=== PATIENT | male | born 1975 | race Caucasian/White ===

== ENCOUNTER 2017-01-16 08:14 | Emergency (ER) | payer SELFPAY ==
[~2017-01-16] VITALS: Ht 180.3 cm; Wt 113.4 kg
[2017-01-16 08:26] VITALS: BP 138/81
[2017-01-16] MEDS ORDERED: BACI28.34 TP (08:45)
[2017-01-16] MEDS ORDERED: LIDOCAINE 2% 20 ML VIAL. IJ ONE (08:45)
--- NOTE | 2017-01-16 08:45 | PHYS DOC ---
Past Medical History Past Medical History: No Pertinent History Past Surgical History: No Surgical History Smoking: Cigarettes, Greater than 1 pack/day Alcohol Use: None Drug Use: None Adult General Chief Complaint Chief Complaint: LACERATION/AVULSION HPI HPI Patient is a pleasant 41-year-old male who works as a broiler chef or cook was cutting vesicles today earlier about 45 minutes prior to arrival and was using a sharp knife while cutting celery slicing into his left finger. There is no numbness and tingling associated with the injury. He's got full range of motion at all the joints within the finger itself and no weakness to full range of motion. Patient denies any foreign body sensation bleeding was stopped directly with direct pressure. Patient also claims that his immunizations including tetanus shot of been updated within the last 5 years. Patient has no other complaints or concerns. Pain is minor at most with pinching his finger to stop the bleeding. Review of Systems Review of Systems Musculoskeletal: Denies back pain or joint pain [] Integument: Denies rash or skin lesions [] Neurologic: Denies headache, focal weakness or sensory changes [] Current Medications Current Medications Current Medications Medications (Trade) Dose Ordered Sig/Manju Start Time Stop Time Status Last Admin Dose Admin Lidocaine HCl 20 ml 1X ONCE 01/16/17 08:45 01/16/17 08:46 DC 01/16/17 08:47 20 ML Allergies Allergies Allergies Coded Allergies Type Severity Reaction Last Updated Verified No Known Drug Allergies 01/16/17 No Physical Exam Physical Exam Vital signs reviewed within normal limits no blood pressure noted. Constitutional: Well developed, well nourished, no acute distress, non-toxic appearance. [] Cardiovascular:Heart rate regular rhythm, no murmur [] Lungs & Thorax: Bilateral breath sounds clear to auscultation [] Skin: Warm, dry, no erythema, no rash. [] Extremities: No tenderness, no cyanosis, no clubbing, ROM intact, no edema. He has a 1.2 cm laceration on the lateral aspect of the left index finger. Patient has normal sensation and strength. Full range of motion. He has no tenderness or involvement of the DIP or PIP joints. He has no foreign body sensation and reading bleeding is well-controlled with direct pressure. He is right-hand dominant. Neurologic: Alert and oriented X 3, normal motor function, normal sensation Current Patient Data Vital Signs Vital Signs Date Time Temp Pulse Resp B/P (MAP) Pulse Ox O2 Delivery O2 Flow Rate FiO2 01/16/17 08:26 98.7 84 16 95 Room Air 98.7 EKG EKG [] Radiology/Procedures Radiology/Procedures [] Course & Med Decision Making Course & Med Decision Making Pertinent Labs and Imaging studies reviewed. (See chart for details) Upon arrival and history and physical patient's laceration will require repair. The floor is visualized and there is no foreign body sensation noted by or by me during full range of motion. Paul cleaned and irrigated this wound repair at with interrupted sutures and discharge this patient home with follow-up with his doctor. See the procedure note upon the end of this case. Impression: Finger laceration. Impression: PCP follow-up for suture removal in 14 days. [] Dragon Disclaimer Dragon Disclaimer This electronic medical record was generated, in whole or in part, using a voice recognition dictation system. Departure Departure Impression: Primary Impression: Laceration of finger of left hand Disposition: 01 HOME, SELF-CARE Condition: IMPROVED Patient Instructions: Laceration Care, Adult Additional Instructions: He is return for any signs of infection, increasing pain or decreased sensation of the finger despite treatment or given any question concerns. Please follow- up with your primary care doctor for suture removal in approximately 14 days. He will not need antibiotics at this time is that this is a clean wound it's been addressed in a very timely manner. Scripts Bacitracin/Polymyxin B Sulfate (POLYSPORIN TOPICAL OINT) 28.3 Gm Oint...g. 1 CAITY TP BID for WOUND CARE, #1 TUBE DIRECTED BY PHYSICIAN Prov: WEST ANDRADE MD 01/16/17 Laceration Repair Lac Repair Indication: [Index finger laceration Procedure: The patient was placed in the appropriate position and anesthesia around the [index finger laceration on the lateral side anesthesia was provided of 3 mL of 2% lidocaine. Area was then using normal saline wash manual debridement and Betadine.. The laceration was closed with 4. 0 Ethilon interrupted sutures. There were 8 individual sutures placed. [ADDITIONAL LACS] The wound area was then dressed with clean bandages finger splint and bacitracin ointment. Total repaired wound length: Total length 1.2 cm. Other Items: No other injuries. There is no foreign body noted no tendon involvement or muscle moment. The patient tolerated the procedure well without issue. Complications: There are no complications. WEST ANDRADE MD Jan 16, 2017 08:45
[2017-01-16] MEDS ORDERED: NEOMY/BACITR/POLYMYXIN OINT PACKET. TP ONE (09:39)
[2017-01-16] MEDS ORDERED: BACITRACIN/POLYMYXIN B TOPICAL OINT 15GM TUBE. TP SCH (10:00)
== END 2017-01-16 09:44 | disposition home or self-care (01) ==
LOC: ER 08:14
DX: S61.211A Laceration without foreign body of left index finger without damage to nail, initial encounter (principal); F17.210 Nicotine dependence, cigarettes, uncomplicated; W26.0XXA Contact with knife, initial encounter; Y93.G3 Activity, cooking and baking; Y92.69 Other specified industrial and construction area as the place of occurrence of the external cause; Y99.0 Civilian activity done for income or pay
CPT/HCPCS: 12001; 99283; J2001